=== PATIENT | male | born 1960 ===

== ENCOUNTER 2022-01-06 07:15 | Day surgery (SDC) | payer OTHER ==
[~2022-01-06 07:15] MED LIST: ALDACTONE25 MG PO; AMIODARONE HCL200 MG PO; CARVEDILOL6.25 MG; LANOXIN125 MCG PO; LASIX20 MG PO; LIPITOR40 MG PO; PEPCID AC20 MG PO; VASOTEC2.5 MG PO; XARELTO20 MG PO
== END 2022-01-06 18:25 | disposition home or self-care (01) ==
LOC: CIR.AMB 07:15
PROVIDERS: ATTEND Orthopaedic Surgery Hand Surgery
DX: S52.532A Colles' fracture of left radius, initial encounter for closed fracture (principal); I25.10 Atherosclerotic heart disease of native coronary artery without angina pectoris; I48.91 Unspecified atrial fibrillation; Z86.16 Personal history of COVID-19; Z87.891 Personal history of nicotine dependence; Z20.822 Contact with and (suspected) exposure to COVID-19